=== PATIENT | female | born 1985 | race African-American/Black ===

== ENCOUNTER 2019-11-14 13:37 | Emergency (ER) | payer OTHER, SELFPAY ==
[~2019-11-14] VITALS: Ht 180.3 cm; Wt 145.0 kg
[2019-11-14] MEDS ORDERED: IBUP-1022 PO (13:44)
[2019-11-14 14:36] LABS: BASO # 0.1 10^3/uL (0.0-0.2); BASO % 0.4 % (0.0-1.0); EOS # 0.1 10^3/uL (0.0-0.5); HEMOGLOBIN 13.6 g/dl (12.0-15.5); LYMPH # 1.9 10^3/uL (1.5-5.0); LYMPH % 15.6 % (24.0-44.0); MEAN CORPUSCULAR HEMOGLOBIN 30.7 pg (27.0-33.0); MEAN CORPUSCULAR HGB CONC 33.2 g/dl (32.0-36.5); MEAN CORPUSCULAR VOLUME 92.6 fl (80.0-96.0); MONO # 0.8 10^3/uL (0.0-0.8); NEUTROPHILS # 9.1 10^3/uL (1.5-8.5); NEUTROPHILS % 75.6 % (36.0-66.0); PLATELET COUNT, AUTOMATED 310 10^3/uL (150-450); RED BLOOD COUNT 4.43 10^6/uL (4.00-5.40)
--- NOTE | 2019-11-14 14:51 | REP ---
Right lower extremity Duplex Doppler venous ultrasound: Real time compression and duplex Doppler interrogation of the right lower extremity deep venous system is performed. The right common femoral, superficial femoral and popliteal veins are fully compressible with transducer pressure and demonstrate normal spontaneous and phasic flow, without evidence of deep venous thrombosis. Impression: No evidence of deep venous thrombosis of the right lower extremity femoral popliteal venous system. Electronically Signed by Keyur Dickey MD 11/14/2019 02:42 P
[2019-11-14 14:53] VITALS: BP 160/82
[2019-11-14] MEDS ORDERED: IBUPROFEN 800 MG TAB PO ONE (15:00)
--- NOTE | 2019-11-14 18:32 | REP ---
HISTORY: Pain after trauma. COMPARISON: None. There is minimal tricompartmental marginal osteophytosis. There is no fracture, dislocation or subluxation. IMPRESSION: Minimal degenerative changes. Electronically Signed by Patrick Adan DO 11/14/2019 08:01 P
== END 2019-11-14 15:17 | disposition home or self-care (01) ==
LOC: M ED 13:37
DX: M25.561 Pain in right knee (principal); R03.0 Elevated blood-pressure reading, without diagnosis of hypertension; S80.01XA Contusion of right knee, initial encounter; W00.0XXA Fall on same level due to ice and snow, initial encounter; Y92.89 Other specified places as the place of occurrence of the external cause; Y93.9 Activity, unspecified; F17.218 Nicotine dependence, cigarettes, with other nicotine-induced disorders; Y99.9 Unspecified external cause status